=== PATIENT | female | born 1995 | race Caucasian/White ===

== ENCOUNTER 2020-09-18 17:54 | Emergency (ER) | payer OTHER, SELFPAY ==
[2020-09-18 17:56] VITALS: BP 140/88; PULSE 88; RESP 12; TEMP 36.1; O2SAT 96; BMI 24.2
--- NOTE | 2020-09-18 18:23 | EDS_ITS ---
HPI History of Present Illness Chief Complaint: Upper Extremity Injury Informant: patient Narrative Narrative: Patient sustained a fall on uneven sidewalk today. She states had her arms outstretched in front of her. She notes pain in the right elbow. She denies any distal sensory or motor loss. She notes an abrasion to the left knee and right great toe. PFSH PFSH Home Medications hydrocodone-acetaminophen 1 tab PO Q6H PRN PRN 3 Days #12 tablet 09/18/20 [Rx Last Taken Unknown] Allergy/AdvReac Type Severity Reaction Status Date / Time Sulfa (Sulfonamide Allergy Rash Verified 09/18/20 17:55 Antibiotics) Surgical History [place] teeth removed Social History Smoking Status: Never smoker ROS ROS ED Constitutional Constitutional ED: Denies chills or weight loss Eyes Eyes: Denies change in vision or diplopia ENT ENT ED: Denies ear pain, rhinorrhea or sore throat Cardiovascular Cardiovascular: Denies chest pain, orthopnea, palpitations or racing heartbeat Respiratory/Chest Respiratory/Chest: Denies cough, dyspnea or orthopnea Gastrointestinal Gastrointestinal: Denies abdominal pain, diarrhea, nausea or vomiting Genitourinary Genitourinary ED: Denies dysuria, hematuria or urinary frequency Musculoskeletal Musculoskeletal: Reports other Details: Right elbow pain ; Denies arthralgias or myalgias Integumentary Denies abscess or rash Neurologic Neurologic: Denies headache(s) or weakness Psychiatric Psychiatric: Denies anxiety, depression, suicidal ideation or suicidal thoughts Endocrine Endocrinology: Denies polydipsia, polyphagia or polyuria Allergic/Immunologic Allergic/Immunologic ED: Denies mouth swelling, tongue swelling or urticaria EXAM Physical Exam Const Vital Signs: 09/18/20 17:56 Temperature 97 F L Temperature Source Temporal Pulse Rate 88 Respiratory Rate 12 Blood Pressure 140/88 H Blood Pressure Mean 105 Pulse Ox 96 Oxygen Delivery Method Room Air Positive well nourished and well developed General Appearance ED: well developed HEENT Reports normocephalic, head/scalp atraumatic and moist mucous membranes Eyes PERRL and EOMs intact bilaterally Neck no lymphadenopathy, supple and no JVD Resp normal respiratory effort and clear to auscultation bilaterally Cardio regular rate, regular rhythm and no murmurs GI normal to inspection, nondistended, normoactive bowel sounds and non-tender Palpation: soft Back/Spine no CVA tenderness and normal ROM Extremity Extremity Narrative: Patient has tenderness to palpation diffusely about the right elbow. She holds it at 90 degrees. NVI distal General Extremety ED: Negative for edema General Extremity: Negative for edema Neuro oriented x3 and CN's II-XII intact bilaterally Sensorium / Orientation: alert Motor Exam: strength 5/5 throughout Psych mental status grossly normal Mood & Affect: Negative for depressed or tearful Skin no rashes or lesions noted and no wounds Skin Narrative: Abrasion right great toe left knee Trauma: abrasion MDM MDM MDM Narrative Medical decision making narrative: My interpretation of the x-rays of the right elbow is positive for joint effusion and radial head fracture. Patient will receive [place] and I will place her in a sling. She is to follow-up with orthopedics. Dr. Callahan is on-call today. Discharge Plan Triage Chief Complaint: Upper Extremity Injury ED Provider: Sandro Watson Dx/Rx/DC Orders Clinical Impression: Fall, Closed fracture of head of right radius Instructions: ED Radial Head Fracture Prescriptions: New hydrocodone-acetaminophen [hydrocodone-acetaminophen] 1 TABLET tablet 1 tab PO Q6H PRN PRN (Reason: Pain) 3 Days Qty: 12 RF: 0 Primary Care Provider: Care Physician,No Primary Referrals: Cabrera Callahan MD [STAFF PHYSICIAN] - As soon as possible Care Physician,No Primary [Primary Care Provider] - Disposition Disposition: Home, self care
--- NOTE | 2020-09-18 18:25 | RAD_ITS ---
EXAM: XR RIGHT ELBOW COMPLETE, 3 OR MORE VIEWS : 1993 CLINICAL INDICATION: trauma TECHNIQUE: Frontal, lateral and oblique views of the right elbow. This report was created using [employer] report [employer] technology. COMPARISON: None. FINDINGS: BONES/JOINTS: There are questionable anterior posterior fat pad signs which would indicate a joint effusion perhaps from an occult radial head fracture. On the oblique view there is very minimal irregularity of the cortex possibly representing a nondisplaced fracture. No destructive or sclerotic lesions. SOFT TISSUES: Unremarkable. No soft tissue swelling or gas. No radiopaque foreign body. RAD/Elbow min 3 Views IMPRESSION: Anterior and posterior fat pad signs indicating joint effusion. There is very questionable cortical irregularity of the radial head which may represent a nondisplaced fracture. at 1850 Reported and signed by: David Smith MD Electronically Signed: David Smith MD at 18:49 EDT Tel , Service support ,
[2020-09-18] MEDS: HYDROcodone Bitartrate/Apap 5/325 Tablet PO (19:05)
== END 2020-09-18 19:24 | disposition home or self-care (01) ==
PROVIDERS: Emergency Provider Emergency Medicine
DX: S52.121A Displaced fracture of head of right radius, initial encounter for closed fracture (principal); S80.212A Abrasion, left knee, initial encounter; W19.XXXA Unspecified fall, initial encounter; Y93.89 Activity, other specified; Y92.480 Sidewalk as the place of occurrence of the external cause; Y99.9 Unspecified external cause status
CPT/HCPCS: 73080; 99282